=== PATIENT | female | born 1985 | race Caucasian/White ===

== ENCOUNTER → 2017-12-14 12:40 | Outpatient (CLI) | payer OTHER, SELFPAY ==
[2017-12-14 13:44] LABS: Absolute Lymphocyte Count 1.89 X10^3/ul (0.83-4.51); Absolute Neutrophil Count 6.7 X10^3/uL (2.0-7.7); Basophil# 0.01 X10^3/uL; Basophil% 0.1 % (0-1); Eosinophil# 0.02 X10^3/uL; Eosinophils% 0.2 % (0-5); Hematocrit 42.4 % (37-47); Hemoglobin 13.8 g/dl (12.0-15.0); Lymphocyte # 1.89 X10^3/ul (4.0); Lymphocyte % 20.2 % (19-41); Mean Corp Hgb Conc 32.5 g/gl (32-36); Mean Corpuscular Hgb 28.5 pg (27.0-32.0); Mean Corpuscular Volume 87.6 fL (81-99); Mean Platelet Vol. 10.6 fl (6.2-12.0); Monocyte% 7.5 % (0-10); Neutrophil # 6.74 X10^3/uL (2.7-7.7); Platelet Count 186 K/mm3 (150-450); RBC Distribution Width CV 13.5 % (11.6-14.6); RBC Distribution Width SD 43.2 fl (35.1-43.9); Red Blood Count 4.84 M/mm3 (4.2-5.4); White Blood Count 9.4 K/mm3 (4.4-11.0)
[2017-12-14 13:46] LABS: POSITIVE COUNT NO; POSITIVE DIFFERENTIAL NO; POSITIVE MORPHOLOGY NO
[2017-12-14 14:57] LABS: HIV - WCH Non-Reactive (Nonreactive)
[2017-12-14 23:14] LABS: Chlamydia Trachomatis by PCR Negative (Negative); Neisserai gonorrhoeae by PCR Negative (Negative); Probe Check PASS; Sample Adequacy Control PASS; Specimen Processing Control PASS
[2017-12-15 11:06] LABS: HEPATITIS B SURFACE AG Negative (Negative)
[2017-12-16 05:19] LABS: Rapid Plasmin Reagin (RPR) NONREACTIVE (NONREACTIVE)
[2017-12-23 12:21] LABS: HPV APTIMA, High Risk Negative (Negative)
== END ==
PROVIDERS: Family Provider Family Medicine; PCP Family Medicine; Visit Provider Obstetrics & Gynecology
DX: Z34.90 Encounter for supervision of normal pregnancy, unspecified, unspecified trimester (principal); Z12.4 Encounter for screening for malignant neoplasm of cervix
CPT/HCPCS: 36415; 85025; 86592; 86703; 86762; 86850; 86900; 87086; 87340; 87491; 87591; 88175; G0145

== ENCOUNTER → 2017-12-26 15:45 | Outpatient (CLI) | payer OTHER, SELFPAY ==
[2018-04-21 17:47] LABS: Glucose Challenge Gest 1H 50g 149 mg/dL (70-140)
== END ==
PROVIDERS: Family Provider Family Medicine; PCP Family Medicine; Visit Provider Obstetrics & Gynecology
DX: Z31.5 Encounter for procreative genetic counseling (principal); O09.511 Supervision of elderly primigravida, first trimester; Z3A.00 Weeks of gestation of pregnancy not specified
CPT/HCPCS: 36415; 82950

== ENCOUNTER → 2018-02-27 08:25 | Outpatient (CLI) | payer OTHER, SELFPAY ==
--- NOTE | 2018-02-27 08:28 | US_ITS ---
STUDY: SECOND AND THIRD TRIMESTER OBSTETRICAL ULTRASOUND REASON FOR EXAM: Female, 33 years old. Routine survey. LMP: October 09, 2017. TECHNIQUE: Transabdominal PRIOR ULTRASOUND: None. FINDINGS: There is a single intrauterine fetus. The fetus is in a breech presentation. There is demonstrated cardiac activity with a heart rate of 155 bpm. There is a normal amniotic fluid volume. The largest amniotic fluid pocket measures 2.3 cm x 7.9 cm. The amniotic fluid index (BELLO) is normal. The placenta is posterior in location and is not low lying. There are Grade 0 placental changes. The cervix measures 4.0 cm in length. The bilateral adnexal regions are normal. BIOMETRY: BPD: 4.13 cm: 18 weeks, 4 days HC: 16.96 cm: 19 weeks, 5 days AC: 14.03 cm: 19 weeks, 3 days FL: 3.14 cm: 19 weeks, 6 days CI: 68% FL/BPD: 76% FL/HC: FL/AC: 22% HC/AC: 1.21 age by current US: 19 weeks, 3 days. HYACINTH by current US: July 21, 2018. Estimated weight: 28 grams, +/- 44 grams, 17 %. Age by LMP: 20 weeks, 1 days. HYACINTH by LMP: July 16, 2018. ANATOMY: Gender: Male Cranium: Normal lateral ventricles. Normal choroid plexus. Normal cerebellum. Normal cisterna magna. Normal face, nose and lips. Chest: Normal 4-chamber heart. Abdomen/Pelvis: Normal diaphragm. Normal stomach. Normal abdominal wall. Normal cord insertion. Normal 3 vessel cord. Normal kidneys. Normal bladder. Spine: Normal cervical spine. Normal thoracic spine. Normal lumbar spine. Normal sacrum. Extremities: Normal bilateral upper extremities. Normal bilateral lower extremities. US/OB Anatomy Scan IMPRESSION: Single live intrauterine gestation with a mean gestational age of 19 weeks and 3 days. Electronically Signed: Beto Miller MD at 15:46 EDT Tel [phone], Service support ,
== END ==
PROVIDERS: Family Provider Family Medicine; PCP Family Medicine; Visit Provider Obstetrics & Gynecology
DX: Z36.89 Encounter for other specified antenatal screening (principal)
CPT/HCPCS: 76805

== ENCOUNTER → 2018-04-21 17:12 | Outpatient (CLI) | payer OTHER, SELFPAY | PROVIDERS: Family Provider Family Medicine; PCP Family Medicine; Referring Provider Obstetrics & Gynecology; Visit Provider Obstetrics & Gynecology | DX: Z00.00 Encounter for general adult medical examination without abnormal findings (principal) ==

== ENCOUNTER → 2018-04-28 06:52 | Outpatient (CLI) | payer OTHER, SELFPAY ==
[2018-04-28 07:50] LABS: Glucose GTT-Gestation. Fasting 88 mg/dL (<105)
[2018-04-28 08:58] LABS: Glucose GTT-Gestational 1 Hr 152 mg/dL (<190)
[2018-04-28 10:05] LABS: Glucose GTT-Gestational 2 Hr 92 mg/dL (<165)
[2018-04-28 11:33] LABS: Glucose GTT-Gestational 3 Hr 39 L (<145)
== END ==
PROVIDERS: Family Provider Family Medicine; PCP Family Medicine; Referring Provider Obstetrics & Gynecology; Visit Provider Obstetrics & Gynecology
DX: R73.09 Other abnormal glucose (principal)
CPT/HCPCS: 36415; 82951; 82952

== ENCOUNTER → 2018-06-23 17:52 | Outpatient (CLI) | payer OTHER, SELFPAY ==
[2018-06-23 16:41] VITALS: BMI 25.8
== END ==
PROVIDERS: Family Provider Family Medicine; PCP Family Medicine; Referring Provider Obstetrics & Gynecology; Visit Provider Obstetrics & Gynecology
DX: Z36.85 Encounter for antenatal screening for Streptococcus B (principal)
CPT/HCPCS: 87081

== ENCOUNTER 2018-07-17 16:25 | Outpatient (CLI) | payer OTHER, SELFPAY ==
[2018-07-11 16:27] VITALS: BMI 27.6
[2018-07-17 17:12] VITALS: BMI 28.1
--- NOTE | 2018-07-19 00:43 | OB.TRI.NOTE ---
- Problem List (1) False labor Status: Acute (2) history of spinal fusion Status: Acute Comment: She will consult with anesthesia concerning epidural (3) Elevated glucose tolerance test Status: Acute Comment: nl 3 hr gtt (4) Status: Acute Qualifiers: Comment: NIPT WNL, carrier and ntd screening declined. anatomy scan reviewed. (5) Supervision of normal Status: Acute Qualifiers: Comment: PRR HYACINTH 07/16/18 gender surprise Arnaldo (6) Rh negative state in antepartum period Status: Acute Comment: s/p rhogam at 28 weeks History of Present Illness Date of Service: 07/17/18 Reason For Visit: R/O LABOR History of Present Illness: co upper abodminal discomfort Allergies codeine Allergy (Mild, Verified 07/18/18 16:23) Other - Pertinent Past Medical History Surgical History: Past Surgical History (Last Reviewed 07/18/18 @ 16:22 by Alessandra Villavicencio) History of back surgery NST - FHR Rate Baby A Baseline: 140 Variability:: Moderate Accelerations:: 15 x 15 Decelerations:: None NST Reactive:: Yes FHR Category:: Category I Uterine Activity:: iregular Impression/Plan abdominal pain false labor no cervical change dc home
== END 2018-07-17 18:55 | disposition home or self-care (01) ==
LOC: WPOUT 16:39 → WP 16:40
PROVIDERS: Family Provider Family Medicine; PCP Family Medicine; Referring Provider Obstetrics & Gynecology; Visit Provider Obstetrics & Gynecology
DX: O47.9 False labor, unspecified (principal); O99.810 Abnormal glucose complicating pregnancy; O36.0130 Maternal care for anti-D [Rh] antibodies, third trimester, not applicable or unspecified; Z3A.00 Weeks of gestation of pregnancy not specified; Z98.1 Arthrodesis status
CPT/HCPCS: 59025; 59050; 99218; G0378

== ENCOUNTER 2018-07-21 05:25 | Inpatient (IN) | payer OTHER, SELFPAY ==
[2018-05-29 16:25] VITALS: BMI 25.8
[2018-07-18 16:43] VITALS: BMI 28.1
[2018-07-21] MEDS: Lactated Ringers 1,000 ML 50 ML IV ×2 (06:35→08:30)
[2018-07-21 06:46] VITALS: BMI 28.4
[2018-07-21 07:02] LABS: Hematocrit 37.7 % (37-47); Hemoglobin 12.3 g/dl (12.0-15.0); Mean Corp Hgb Conc 32.6 g/gl (32-36); Mean Corpuscular Hgb 28.1 pg (27.0-32.0); Mean Corpuscular Volume 86.3 fL (81-99); Platelet Count 189 K/mm3 (150-450); RBC Distribution Width CV 13.7 % (11.6-14.6); Red Blood Count 4.37 M/mm3 (4.2-5.4); White Blood Count 10.6 K/mm3 (4.4-11.0)
[2018-07-21 07:12] LABS: Scan Indicated on CBC? Y/N NO
[2018-07-21] MEDS: Ondansetron 4 MG/2 ML Vial IV (07:59)
--- NOTE | 2018-07-21 20:18 | PCM.HP.OB ---
- Problem List (1) Active labor at term Status: Acute (2) history of spinal fusion Status: Acute Comment: She will consult with anesthesia concerning epidural (3) Elevated glucose tolerance test Status: Acute Comment: nl 3 hr gtt (4) Status: Acute Qualifiers: Comment: NIPT WNL, carrier and ntd screening declined. anatomy scan reviewed. (5) Supervision of normal Status: Acute Qualifiers: Comment: PRR HYACINTH 07/16/18 gender surprise Arnaldo (6) Rh negative state in antepartum period Status: Acute Comment: s/p rhogam at 28 weeks History Date of Admission: 07/21/18 Final HYACINTH: 07/16/18 Gestational age: 40 Weeks and 5 Days History of this : This is a 33 year-old, at 40 weeks gestational age presents IAL 5 cm no vb lof good fm. Surgical History: Surgical History (Last Reviewed 07/18/18 @ 16:22 by Alessandra Villavicencio) History of back surgery Z98.890 Allergies codeine Adverse Reaction (Mild, Verified 07/21/18 06:47) Nausea Home Medications: Home Medications vitamin,calcium,mmawosal-ifvq-ovzgb acid tablet 1 tab PO QDAY 12/14/17 Smoking Status: Never smoker Alcohol: None Number of Fetus(es): 1 Heart Tracin moderate variability reactive no decelerations category I tracing\ [place]: regular History Past Pregnancies: Past Pregnancies Delivery Date Name GA/Weeks Outcome Route Weight Gender Labor Length Anesthesia Delivery Location Provider FOB Labs: Mom's Labs & Results 07/21/18 07/21/18 07/21/18 06:35 06:35 06:35 WBC 10.6 RBC 4.37 Hgb 12.3 Hct 37.7 MCV 86.3 MCH 28.1 MCHC 32.6 RDW 13.7 RDW Differential 42.0 Plt Count 189 MPV 11.0 Blood Type O NEGATIVE Antibody Screen TNP NEGATIVE Course Did the patient receive Yes care? Labs Blood Type: O RH: NEGATIVE RPR/VDRL/Syphilis Nonreactive Rubella status Immune HbSAg Negative Date Done: 12/14/17 Chlamydia Negative Gonorrhea Negative HIV/AIDS Non-Reactive Group B Strep: Negative Current Obstetrical History Gestational Diabetes No Incompetent Cervix No Infertility No IUGR No Macrosomia No Hypertension/Pre-eclampsia No Placenta Previa/Abruption No PTL/PROM No Uterine anomaly No Oligohydramnios No Polyhydramnios No Multiple gestation No Past Medical History Asthma No Diabetes No Hypertension No Heart disease No Mitral valve prolapse No Neurologic/Seizure disorder/ No Migraines Kidney disease No Liver disease No Varicosities No Clotting disorders/Hx of DVT No Thyroid Dysfunction No Other medical diseases No Psychiatric disorders No Major trauma No Abnormal PAP smear No Sleep apnea No Mammogram in the last 2 years No Social History Marital Status: Alleged father Arnaldo Hx Smoking No Smoking Status Never smoker Expected Delivery Method: Spontaneous Vaginal Review of Systems Constitutional: Denies: Fever, Malaise Eyes: Denies: Blurred vision, Vision Change HEENT: Denies: Head Aches, Visual Changes Cardiovascular: Denies: Chest Pain, Palpitations Respiratory: Denies: Cough, Shortness of Breath, Wheezing Gastrointestinal: Denies: Abdominal Pain, Diarrhea, Nausea, Vomiting Genitourinary: Denies: Dysuria, Hematuria Musculoskeletal: Denies: Joint Pain, Muscle pain Skin: Denies: Lesions, Rash Neurological: Denies: Blurred vision, Focal weakness, Headaches Psychiatric: Denies: Anxiety, Depression Endocrine: Denies: Heat/ Cold Intolerance Hematologic/ Lymphatic: Denies: Easy Bruising, Easy Bleeding Physical Exam General: Alert, Cooperative, No apparent distress HEENT: Atraumatic, Normocephalic. Negative for: Thyromegaly, Lymphadenopathy Cardiovascular: Regular rate Lungs: Normal air movement Abdomen: Soft, Non Tender, Gravid Neurological: Deep Tendon Reflexes 2+/4 and Symmetrical, Neuro grossly intact. 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 Negative for: Vulvar lesions Estimated gestational size: Appropriate for gestational size Presentation: Cephalic Assessment/Plan All Active Problems (Last Reviewed 07/18/18 @ 16:22 by Alessandra Villavicencio) False labor (Acute) Active labor at term (Acute) history of spinal fusion (Acute) Elevated glucose tolerance test (Acute) (Acute) Supervision of normal (Acute) Rh negative state in antepartum period (Acute) 33 yo presents IAL Patient presents IAL, plan expectant management for , pitocin/AROM PRN if needed. Pain management: plans epidural. GBS negative. Management of any complications: none I have reviewed the [facility] and made any clinically relevant updates.
--- NOTE | 2018-07-21 20:22 | HP.PCM_ITS ---
- Problem List (1) Active labor at term Status: Acute (2) history of spinal fusion Status: Acute Comment: She will consult with anesthesia concerning epidural (3) Elevated glucose tolerance test Status: Acute Comment: nl 3 hr gtt (4) Status: Acute Qualifiers: Comment: NIPT WNL, carrier and ntd screening declined. anatomy scan reviewed. (5) Supervision of normal Status: Acute Qualifiers: Comment: PRR HYACINTH 07/16/18 gender surprise Arnaldo (6) Rh negative state in antepartum period Status: Acute Comment: s/p rhogam at 28 weeks History Date of Admission: 07/21/18 Final HYACINTH: 07/16/18 Gestational age: 40 Weeks and 5 Days History of this : This is a 33 year-old, at 40 weeks gestational age presents IAL 5 cm no vb lof good fm. Surgical History: Surgical History (Last Reviewed 07/18/18 @ 16:22 by Alessandra Villavicencio) History of back surgery Z98.890 Allergies codeine Adverse Reaction (Mild, Verified 07/21/18 06:47) Nausea Home Medications: Home Medications vitamin,calcium,zxaumwzr-blvf-ofjsq acid tablet 1 tab PO QDAY 12/14/17 Smoking Status: Never smoker Alcohol: None Number of Fetus(es): 1 Heart Tracin moderate variability reactive no decelerations category I tracing\ [place]: regular History Past Pregnancies: Past Pregnancies Delivery Date Name GA/Weeks Outcome Route Weight Gender Labor Length Anesthesia Delivery Location Provider FOB Labs: Mom's Labs & Results 07/21/18 07/21/18 07/21/18 06:35 06:35 06:35 WBC 10.6 RBC 4.37 Hgb 12.3 Hct 37.7 MCV 86.3 MCH 28.1 MCHC 32.6 RDW 13.7 RDW Differential 42.0 Plt Count 189 MPV 11.0 Blood Type O NEGATIVE Antibody Screen TNP NEGATIVE Course Did the patient receive Yes care? Labs Blood Type: O RH: NEGATIVE RPR/VDRL/Syphilis Nonreactive Rubella status Immune HbSAg Negative Date Done: 12/14/17 Chlamydia Negative Gonorrhea Negative HIV/AIDS Non-Reactive Group B Strep: Negative Current Obstetrical History Gestational Diabetes No Incompetent Cervix No Infertility No IUGR No Macrosomia No Hypertension/Pre-eclampsia No Placenta Previa/Abruption No PTL/PROM No Uterine anomaly No Oligohydramnios No Polyhydramnios No Multiple gestation No Past Medical History Asthma No Diabetes No Hypertension No Heart disease No Mitral valve prolapse No Neurologic/Seizure disorder/ No Migraines Kidney disease No Liver disease No Varicosities No Clotting disorders/Hx of DVT No Thyroid Dysfunction No Other medical diseases No Psychiatric disorders No Major trauma No Abnormal PAP smear No Sleep apnea No Mammogram in the last 2 years No Social History Marital Status: Alleged father Arnaldo Hx Smoking No Smoking Status Never smoker Expected Delivery Method: Spontaneous Vaginal Review of Systems Constitutional: Denies: Fever, Malaise Eyes: Denies: Blurred vision, Vision Change HEENT: Denies: Head Aches, Visual Changes Cardiovascular: Denies: Chest Pain, Palpitations Respiratory: Denies: Cough, Shortness of Breath, Wheezing Gastrointestinal: Denies: Abdominal Pain, Diarrhea, Nausea, Vomiting Genitourinary: Denies: Dysuria, Hematuria Musculoskeletal: Denies: Joint Pain, Muscle pain Skin: Denies: Lesions, Rash Neurological: Denies: Blurred vision, Focal weakness, Headaches Psychiatric: Denies: Anxiety, Depression Endocrine: Denies: Heat/ Cold Intolerance Hematologic/ Lymphatic: Denies: Easy Bruising, Easy Bleeding Physical Exam General: Alert, Cooperative, No apparent distress HEENT: Atraumatic, Normocephalic. Negative for: Thyromegaly, Lymphadenopathy Cardiovascular: Regular rate Lungs: Normal air movement Abdomen: Soft, Non Tender, Gravid Neurological: Deep Tendon Reflexes 2+/4 and Symmetrical, Neuro grossly intact. Negative for: Clonus FLUX TUBE ATTENDANT: Normal external genitalia. Negative for: Vulvar lesions Estimated gestational size: Appropriate for gestational size Presentation: Cephalic Assessment/Plan All Active Problems (Last Reviewed 07/18/18 @ 16:22 by Alessandra Villavicencio) False labor (Acute) Active labor at term (Acute) history of spinal fusion (Acute) Elevated glucose tolerance test (Acute) (Acute) Supervision of normal (Acute) Rh negative state in antepartum period (Acute) 33 yo presents IAL Patient presents IAL, plan expectant management for , pitocin/AROM PRN if needed. Pain management: plans epidural. GBS negative. Management of any complications: none I have reviewed the [facility] and made any clinically relevant updates.
--- NOTE | 2018-07-21 21:30 | NURSING ---
Pt. epidural catheter taken out. Blue tip intact. No bleeding noted. Gauze pad and band-aid placed over site in case of future bleeding while pt. is more mobile. Pt. tearful from tape coming off, but tolerated well.
[2018-07-21] MEDS: Acetaminophen 325 MG Tablet PO (21:54)
[2018-07-22] VITALS (7 sets, daily range): BP systolic 98–120; BP diastolic 45–79; PULSE 64–81; RESP 14–18; TEMP 36.3–37.3; O2SAT 95–98
[2018-07-22] MEDS: Ibuprofen 600 MG Tablet PO ×3 (00:49→14:24)
[2018-07-22] MEDS: Senna/Docusate Sodium 1 Tablet PO (08:28)
[2018-07-22] MEDS: Acetaminophen 500 MG Tablet 1000 MG PO (10:15)
--- NOTE | 2018-07-22 10:30 | PCM.PN.OB ---
Patient Problems: Active and Suspected Problems (Last Reviewed 07/18/18 @ 16:22 by Alessandra Villavicencio) Active labor at term (Acute) Subjective: doing well no complaints pain controlled no CP SOB N V ambulating well tolerating po lochia moderate, going well - Physical Exam General: Alert, Oriented x3 Vital Signs Temp Pulse Resp BP Pulse Ox 99 F 77 14 116/45 L 96 07/22/18 08:20 07/22/18 08:20 07/22/18 08:20 07/22/18 08:20 07/22/18 08:20 Oxygen Delivery Method Room Air Weight: 184 lb 8.43 oz Body Mass Index (BMI) 28.4 Intake and Output for Last 24 Hours 07/20/18 07/21/18 07/22/18 23:59 23:59 23:59 Output Total 1999 Balance -1999 Medical Necessity - Tobacco Use Smoking Status: Never smoker Assessment/Plan All Active Problems (Last Reviewed 07/18/18 @ 16:22 by Alessandra Villavicencio) False labor (Acute) Active labor at term (Acute) history of spinal fusion (Acute) Elevated glucose tolerance test (Acute) (Acute) Supervision of normal (Acute) Rh negative state in antepartum period (Acute) s/p PPD # 1 1. routine post delivery care 2. breast feeding- support given 3. rh negative 4. rubella immune
--- NOTE | 2018-07-22 10:33 | OP.PCM_ITS ---
- Problem List (1) Active labor at term Status: Acute (2) history of spinal fusion Status: Acute Comment: She will consult with anesthesia concerning epidural (3) Elevated glucose tolerance test Status: Acute Comment: nl 3 hr gtt (4) Status: Acute Qualifiers: Comment: NIPT WNL, carrier and ntd screening declined. anatomy scan reviewed. (5) Supervision of normal Status: Acute Qualifiers: Comment: PRR HYACINTH 07/16/18 gender surprise Arnaldo (6) Rh negative state in antepartum period Status: Acute Comment: s/p rhogam at 28 weeks Vaginal Delivery Maternal Presentation: Active Labor 40w5d IAL primigravid 5 cm Amniotic Membrane Rupture Type: Artificial Amniotic Fluid Description: Clear Final HYACINTH: 07/16/18 Gestational age: 41 Weeks and 0 Days Date of Procedure: 07/21/18 Pre-Operative Diagnosis: ial Post-Operative Diagnosis: same Surgery/ Procedure Performed: Spontaneous Vaginal Delivery Type of Anesthesia: Epidural Description of Procedure: Patient began pushing and delivered the head in the ADELA presentation. The head was delivered atraumatically. The anterior and posterior shoulders delivered without complication followed by the rest of the and the infant was placed on the maternal abdomen. Delayed cord clamping was employed for estevan roximately 60 seconds. Cord was clamped and cut and gentle traction was applied to the cord and the placenta delivered spontaneously immediately following it was noted to be intact with three-vessel cord. The perineum and vagina were inspected and [noted to have a small second degree laceration that was repaired in the usual fashion. Patient and infant tolerated delivery well. Presentation: ADELA Placental Delivery Description: Spontaneous Placenta Disposition: [facility] gender: Female Episiotomy Description: None Laceration: Perineal Extension/lac, 2nd degree Medications given after delivery: IV Pitocin Complications: None
--- NOTE | 2018-07-22 12:40 | NURSING ---
pt warm and diaphoretic. afebrile with no other symptoms. pt educated on hormonal changes she may be experiencing
--- NOTE | 2018-07-22 16:00 | NURSING ---
pt provided tucks pads and dibucaine cream and given instruction on use
[2018-07-22] MEDS: Dibucaine 30 GM Tube 1 APPLIC TOPICAL (16:17)
[2018-07-23 01:18] VITALS: BP 107/67; PULSE 65; RESP 16; TEMP 36.6; O2SAT 96
[2018-07-23] MEDS: Ibuprofen 600 MG Tablet PO (07:51)
[2018-07-23] MEDS: Senna/Docusate Sodium 1 Tablet PO (10:36)
[2018-07-23] MEDS: Acetaminophen 500 MG Tablet 1000 MG PO (10:36)
--- NOTE | 2018-07-23 13:13 | PCM.DCVAG ---
Discharge Diet: No Restrictions Discharge Activity: Return to Normal Activity, May not drive while taking narcotic pain medications., May Shower May resume sexual activity in: 4-6 weeks Call your doctor if your incision/area has: Continuous Slow Oozing, Sudden Increased Bleeding, Increased Pain/ Swelling, Increased Redness, Foul Smelling Discharge Additional Instructions: If you experience any of the following, contact your healthcare provider. Bleeding that soaks a pad every hour for 2 hours Fever 100.4 or higher Unrelieved incision or abdominal pain Swelling, redness, discharge or bleeding from your incision or episiotomy site Your incision begins to separate Problems urinating (including inability to urinate or burning while urinating). Visual changes Severe headache Flu-like symptoms Pain or redness in one of both of your breasts Pain, warmth, tenderness or swelling in your legs, especially the calf area Frequent nausea and vomiting Symptoms of depression or anxiety If you experience any of the following, call 911 or go to the nearest Emergency Room. Chest pain Problems breathing Seizure activity Partial or complete paralysis of a body part, slurred speech, weakness or drooping of the face, or a sudden inability to walk or hold your balance Allergies/Adverse Reactions: Allergies codeine Adverse Reaction (Mild, Verified 07/21/18 06:47) Nausea Medications to take at Discharge vitamin,calcium,hmxigglw-gexj-ctktc acid tablet 1 tab PO QDAY 12/14/17 Please Follow Up With: Neema Gordon MD - [phone] When: Call to make an appointment with your doctor in 6 weeks. If you had elevated Blood pressure or 4th degree laceration you will need to be seen in 2 weeks. Primary Care Physician: Kendrick Jacob III, MD [Primary Care Provider] - Test Results: Test results from this visit will be discussed in further detail at your follow-up appointment, if applicable.
--- NOTE | 2018-07-23 13:14 | DCINST_ITS ---
Discharge Diet: No Restrictions Discharge Activity: Return to Normal Activity, May not drive while taking narcotic pain medications., May Shower May resume sexual activity in: 4-6 weeks Call your doctor if your incision/area has: Continuous Slow Oozing, Sudden Increased Bleeding, Increased Pain/ Swelling, Increased Redness, Foul Smelling Discharge Additional Instructions: If you experience any of the following, contact your healthcare provider. * Bleeding that soaks a pad every hour for 2 hours * Fever 100.4 or higher * Unrelieved incision or abdominal pain * Swelling, redness, discharge or bleeding from your incision or episiotomy site * Your incision begins to separate * Problems urinating (including inability to urinate or burning while urinating). * Visual changes * Severe headache * Flu-like symptoms * Pain or redness in one of both of your breasts * Pain, warmth, tenderness or swelling in your legs, especially the calf area * Frequent nausea and vomiting * Symptoms of depression or anxiety If you experience any of the following, call 911 or go to the nearest Emergency Room. * Chest pain * Problems breathing * Seizure activity * Partial or complete paralysis of a body part, slurred speech, weakness or drooping of the face, or a sudden inability to walk or hold your balance Allergies/Adverse Reactions: Allergies codeine Adverse Reaction (Mild, Verified 07/21/18 06:47) Nausea Medications to take at Discharge vitamin,calcium,ythmedqx-xlpv-myrls acid tablet 1 tab PO QDAY 12/14/17 Please Follow Up With: Neema Gordon MD - [phone] When: Call to make an appointment with your doctor in 6 weeks. If you had elevated Blood pressure or 4th degree laceration you will need to be seen in 2 weeks. Primary Care Physician: Kendrick Jacob III, MD [Primary Care Provider] - Test Results: Test results from this visit will be discussed in further detail at your follow- up appointment, if applicable.
[2018-07-23 14:00] VITALS: BP 108/69; PULSE 64; RESP 14; TEMP 36.9; O2SAT 98
== END 2018-07-23 15:45 | disposition home or self-care (01) | DRG 806 ==
PROVIDERS: Admitting Provider Obstetrics & Gynecology; Family Provider Family Medicine; PCP Family Medicine; Referring Provider Obstetrics & Gynecology; Visit Provider Obstetrics & Gynecology
DX: O70.1 Second degree perineal laceration during delivery (principal); O36.0130 Maternal care for anti-D [Rh] antibodies, third trimester, not applicable or unspecified; Z37.0 Single live birth; O99.810 Abnormal glucose complicating pregnancy; Z98.1 Arthrodesis status; Z3A.40 40 weeks gestation of pregnancy
CPT/HCPCS: 59025; 59050; 85027; 86850; 86900; 99218; J7120; G0378; J2405

== ENCOUNTER → 2021-05-21 09:59 | Outpatient (CLI) | payer OTHER, SELFPAY ==
[2021-05-21 10:31] LABS: Absolute Lymphocyte Count 1.62 X10^3/uL (0.83-4.51); Absolute Neutrophil Count 4.8 X10^3/uL (2.0-7.7); Basophil# 0.04 X10^3/uL; Basophil% 0.6 % (0-1); Eosinophil# 0.04 X10^3/uL; Eosinophils% 0.6 % (0-5); Hematocrit 40.1 % (37-47); Hemoglobin 12.9 g/dL (12.0-15.0); Lymphocyte # 1.62 X10^3/ul (0.83-4.51); Lymphocyte % 22.9 % (19-41); Mean Corp Hgb Conc 32.2 g/dL (32-36); Mean Corpuscular Hgb 27.9 pg (27.0-32.0); Mean Corpuscular Volume 86.8 fL (81-99); Monocyte# 0.56 X10^3/uL; Monocyte% 7.9 % (0-10); NRBC Flagged by Analyzer 0 % (0-5); Neutrophil # 4.77 X10^3/uL (2.7-7.7); Neutrophil % 67.6 % (47-70); Platelet Count 213 K/mm3 (150-450); RBC Distribution Width SD 40.9 fl (35.1-43.9); Red Blood Count 4.62 M/mm3 (4.2-5.4); White Blood Count 7.1 K/mm3 (4.4-11.0)
[2021-05-21 10:47] LABS: Amphetamine Urine VISTA NEGATIVE (<1000 ng/mL); Barbiturate Urine VISTA NEGATIVE (< 200 ng/mL); Benzodiazepine Urine VISTA NEGATIVE (< 200 ng/mL); Cocaine Urine VISTA NEGATIVE (< 300 ng/mL); Ecstacy Urine VISTA NEGATIVE (< 500 ng/mL); Methadone Urine VISTA NEGATIVE (< 300 ng/mL); PCP Urine VISTA NEGATIVE (< 25 ng/mL); THC Urine VISTA NEGATIVE (< 50 ng/mL); Vista UDS pH Range 6
[2021-05-21 11:09] LABS: NATERA MAILED SPECIMEN
[2021-05-21 11:43] LABS: HIV - WCH Non-Reactive (Nonreactive); Hepatitis B Surface Antigen Non-Reactive (Nonreactive); Hepatitis C Antibody Non-Reactive (Nonreactive); Rubella IgG Reactive (Nonreactive); Syphilis Antibodies Non-reactive
[2021-05-21 13:33] LABS: Amphetamine Urine VISTA NEGATIVE (<1000 ng/mL); Barbiturate Urine VISTA NEGATIVE (< 200 ng/mL); Benzodiazepine Urine VISTA NEGATIVE (< 200 ng/mL); Cocaine Urine VISTA NEGATIVE (< 300 ng/mL); Ecstacy Urine VISTA NEGATIVE (< 500 ng/mL); Methadone Urine VISTA NEGATIVE (< 300 ng/mL); PCP Urine VISTA NEGATIVE (< 25 ng/mL); THC Urine VISTA NEGATIVE (< 50 ng/mL); Vista UDS pH Range 5
[2021-05-22 21:07] LABS: Chlamydia By Nucleic Acid AMP Negative (Negative)
[2021-05-22 21:46] LABS: Gonococcus By Nucleic Acid AMP Negative (Negative)
== END ==
PROVIDERS: PCP Family Medicine; Referring Provider Obstetrics & Gynecology; Visit Provider Obstetrics & Gynecology
DX: Z34.90 Encounter for supervision of normal pregnancy, unspecified, unspecified trimester (principal)
CPT/HCPCS: 36415; 80307; 85025; 86703; 86762; 86780; 86803; 86850; 86900; 86901; 87086; 87340; 87491; 87591

== ENCOUNTER 2021-07-16 16:31 | Outpatient (CLI) | payer OTHER, SELFPAY | END 2021-07-16 23:59 | disposition short-term general hospital (02) | PROVIDERS: Referring Provider Obstetrics & Gynecology; Visit Provider Obstetrics & Gynecology | DX: Z36.9 Encounter for antenatal screening, unspecified (principal) | CPT/HCPCS: 36415 ==

== ENCOUNTER 2021-08-03 13:48 | Outpatient (CLI) | payer OTHER, SELFPAY ==
--- NOTE | 2021-08-03 14:07 | US_ITS ---
STUDY: SECOND AND THIRD TRIMESTER OBSTETRICAL ULTRASOUND - LIMITED REASON FOR EXAM: Female, 36 years old. anatomy PRIOR ULTRASOUND: None. TECHNIQUE: Transabdominal TECHNICAL QUALITY: Adequate. FINDINGS: There is a single intrauterine fetus. The fetus is in a breech presentation. There is demonstrated cardiac activity with a heart rate of 141 bpm. There is a normal amniotic fluid volume. The largest amniotic fluid pocket measures 5.4 cm. The placenta is fundal in location. There are Grade 0 placental changes. The cervix measures cm in length: 4.7. BIOMETRY: BPD: 45 mm: 19 weeks, 3 days HC: 172 mm: 19 weeks, 5 days AC: 157 mm: 20 weeks, 6 days FL: 31 mm: 19 weeks, 3 days CI: 74 FL/AC: 19 FL/BPD: 68 HC/AC: 1.10 age by current US: 19 weeks, 5 days. HYACINTH by current US: 7.6.22. Estimated weight: 338 grams, +/- 51 grams, 39 %. Age by LMP: 20 weeks, 2 days. HYACINTH by LMP: 7.2.22. ANATOMY: Gender: Male Cranium: Normal lateral ventricles. Normal choroid plexus. Normal cerebellum. Normal cisterna magna. Normal face, nose and lips. Chest: Normal 4-chamber heart. Abdomen/Pelvis: Normal diaphragm. Normal stomach. Normal abdominal wall. Normal cord insertion. There are findings suggesting a 2 vessel cord. Fullness of the kidneys can suggest possible mild hydronephrosis. Normal bladder. Spine: Normal cervical spine. Normal thoracic spine. The lumbar spine is non-visualized. non-visualized sacrum. Extremities: Normal bilateral upper extremities. Normal bilateral lower extremities. IMPRESSION: There is a single live intrauterine with a heart rate of 141 bpm. age by current US: 19 weeks, 5 days. HYACINTH by current US: 7.6.22. Estimated weight: 338 grams, +/- 51 grams, 39 %. anatomy: There are findings suggesting a 2 vessel cord. Lumbar spine and sacrum not seen. Fullness of the kidneys can suggest possible mild hydronephrosis. Level 2 US can evaluate if of concern. Electronically Signed: Leonardo Bell MD at 15:58 EST , STUDY: SECOND AND THIRD TRIMESTER OBSTETRICAL ULTRASOUND - LIMITED REASON FOR EXAM: Female, 36 years old. anatomy PRIOR ULTRASOUND: None. TECHNIQUE: Transvaginal TECHNICAL QUALITY: Adequate. FINDINGS: There is a single intrauterine fetus. The fetus is in a breech presentation. There is demonstrated cardiac activity with a heart rate of 141 bpm. There is a normal amniotic fluid volume. The largest amniotic fluid pocket measures 5.4 cm. The placenta is fundal in location. There are Grade 0 placental changes. The cervix measures cm in length: 4.7. BIOMETRY: BPD: 45 mm: 19 weeks, 3 days HC: 172 mm: 19 weeks, 5 days AC: 157 mm: 20 weeks, 6 days FL: 31 mm: 19 weeks, 3 days CI: 74 FL/AC: 19 FL/BPD: 68 HC/AC: 1.10 age by current US: 19 weeks, 5 days. HYACINTH by current US: 7.6.22. Estimated weight: 338 grams, +/- 51 grams, 39 %. Age by LMP: 20 weeks, 2 days. HYACINTH by LMP: 7.2.22. ANATOMY: Gender: Male Cranium: Normal lateral ventricles. Normal choroid plexus. Normal cerebellum. Normal cisterna magna. Normal face, nose and lips. Chest: Normal 4-chamber heart. Abdomen/Pelvis: Normal diaphragm. Normal stomach. Normal abdominal wall. Normal cord insertion. There are findings suggesting a 2 vessel cord. Fullness of the kidneys can suggest possible mild hydronephrosis. Normal bladder. Spine: Normal cervical spine. Normal thoracic spine. The lumbar spine is non-visualized. non-visualized sacrum. Extremities: Normal bilateral upper extremities. Normal bilateral lower extremities. US/OB Anatomy Scan
== END 2021-08-03 23:59 | disposition home or self-care (01) ==
PROVIDERS: Referring Provider Obstetrics & Gynecology; Visit Provider Obstetrics & Gynecology
DX: Z34.82 Encounter for supervision of other normal pregnancy, second trimester (principal)
CPT/HCPCS: 76805; 76817

== ENCOUNTER 2021-09-25 12:29 | Outpatient (CLI) | payer OTHER, SELFPAY ==
[2021-09-25 13:22] LABS: Absolute Lymphocyte Count 1.72 X10^3/uL (0.83-4.51); Absolute Neutrophil Count 6.8 X10^3/uL (2.0-7.7); Basophil# 0.02 X10^3/uL; Basophil% 0.2 % (0-1); Eosinophil# 0.03 X10^3/uL; Eosinophils% 0.3 % (0-5); Hematocrit 35.4 % (37-47); Hemoglobin 11.5 g/dL (12.0-15.0); Lymphocyte # 1.72 X10^3/ul (0.83-4.51); Lymphocyte % 18.7 % (19-41); Mean Corp Hgb Conc 32.5 g/dL (32-36); Mean Corpuscular Volume 89.2 fL (81-99); Mean Platelet Vol. 10.1 fl (6.2-12.0); Monocyte# 0.49 X10^3/uL; Monocyte% 5.3 % (0-10); NRBC Flagged by Analyzer 0 % (0-5); Neutrophil # 6.82 X10^3/uL (2.7-7.7); Neutrophil % 74.2 % (47-70); Platelet Count 189 K/mm3 (150-450); RBC Distribution Width CV 12.8 % (11.6-14.6); RBC Distribution Width SD 41.5 fl (35.1-43.9); Red Blood Count 3.97 M/mm3 (4.2-5.4); White Blood Count 9.2 K/mm3 (4.4-11.0)
[2021-09-25 13:59] LABS: Glucose Challenge Gest 1H 50g 179 mg/dL (70-140)
== END 2021-09-25 23:59 | disposition home or self-care (01) ==
LOC: LAB 12:29
PROVIDERS: Referring Provider Obstetrics & Gynecology; Visit Provider Obstetrics & Gynecology
DX: Z34.92 Encounter for supervision of normal pregnancy, unspecified, second trimester (principal)
CPT/HCPCS: 36415; 82950; 85025; 86850; 86900; 86901

== ENCOUNTER 2021-09-26 13:37 | Outpatient (CLI) | payer OTHER, SELFPAY ==
--- NOTE | 2021-10-08 08:08 | OB.TRI.HP_ITS ---
HPI - General HPI Narrative ONEL GRIFFIN, is a 36 F who presents to L&D for a rhogam only injection. She was sent to L&D by myself due to supply issue in our office today. She has no complaints or concerns and was seen by me in the office today. Maternal Data Information HYACINTH Calculator Estimated Delivery Date Method Current WG Current Estimate 12/19/21 Ultrasound #1 29w 5d Other Estimates 12/10/21 LMP (Certain) 31w 0d PFSH PFSH Medical History Lab test positive for detection of COVID-19 virus Perineal pain Home Medications prenat.vits,joni,fdy-haal-tzhhi 1 tab PO QDAY 12/14/17 [History Last Taken 07/20/18 17:00 1 tab] promethazine 25 mg tablet 25 mg PO TID PRN #30 tab 08/28/21 [Rx Last Taken Unknown] Allergy/AdvReac Type Severity Reaction Status Date / Time codeine AdvReac Mild Nausea Verified 09/26/21 13:40 Family History Father Diabetes Heart disease Mother Heart disease Arthritis Surgical History History of back surgery Social History current occupational status: employed current occupation: [employer] Smoking Status: Never smoker alcohol intake: never substance use type: does not use caffeine: No what type of physical activity do you participate in: none, walking and running frequency: 3-4 times per week seatbelt use: always do you feel safe at home: Yes additional social history: Arnaldo- Teacher History 2 Elective abortions Hx Para 1 Spontaneous abortions Hx # Term Pregnancies Ectopic pregnancies Hx # Pregnancies Multiple births # of living children 1 Past Pregnancies Del. Date Name GA/Weeks Outcome Route Bth Weight Gen Labor Lgth Anesthesia Del Locatn Provider FOB 07/21/18 Roth 40 live - full term 8lbs 11oz Male e pidural [facility] Visit Details Expected Delivery Route/Plan Labor Preferences- CB/BF classes: [] labor support person: [] labor intervention preferences: [] pain management options preferred: [] cut cord/dad catch: [] : [] PP control planned: [] discussed possible routes of delivery and associated risks: [] special requests: [] Plans Covid status: pfizer, positive at 6 weeks Flu vaccine: discussed Tdap vaccine: [] Rhogam: [] LARC form signed: [] Problem list reviewed and updated with the most current plan of care details and appropriate orders placed. Relevant counseling for the gestational age provided. Continue routine care and follow up unless otherwise noted in visit notes/problem list details OB Flowsheet Initial Weight: 145 lb Date -?-?-?-?-?--?-?-?-?-?-?-?- EGA Weight BP Urine Prot -?-?-?-?-?-?-?-?-?-?-?-?- Glucose FHR FuHt Pres Dilation -?-?-?-?-?-?-?-?-?-?-?-?- Effaced St Visit Note 05/21/21 -?-?-?-?-?-?-?-?-?-?-?-?- 9w 5d 145 lb (+0 oz) 96/60 -?-?-?-?-?-?-?-?-?-?-?-?- 180 -?-?-?-?-?-?-?-?-?-?-?-?- SM- CRL NOT cons with LMP 06/03/21 -?-?-?-?-?-?-?-?-?-?-?-?- 11w 4d 146 lb (+16 oz) 122/80 Negative -?-?-?-?-?-?-?-?-?-?-?-?- Negative 175 -?-?-?-?-?-?-?-?-?-?-?-?- JV- renzo is small er. pt reassured. RTO in 2 weeks for resolution. 06/15/21 -?-?-?-?-?-?-?-?-?-?-?-?- 13w 2d 149 lb (+4 lb) 112/72 Negative -?-?-?-?-?-?-?-?-?-?-?-?- Negative 170 -?-?-?-?-?-?-?-?-?-?-?-?- SM- 4 mm renzo res olved no vb cramping 07/16/21 -?-?-?-?-?-?-?-?-?-?-?-?- 17w 5d 154 lb (+9 lb) 92/64 -?-?-?-?-?-?-?-?-?-?-?-?- 160 -?-?-?-?-?-?-?-?-?-?-?-?- SM- no vb crampi ng 08/10/21 -?-?-?-?-?-?-?-?-?-?-?-?- 21w 2d 160 lb (+15 lb) 120/80 Negative -?-?-?-?-?-?-?-?-?-?-?-?- Negative 145 -?-?-?-?-?-?-?-?-?-?-?-?- SM- no vb lof go od fm no ctx 09/07/21 -?-?-?-?-?-?-?-?-?-?-?-?- 25w 2d 164 lb (+19 lb) 92/60 Negative -?-?-?-?-?-?-?-?-?-?-?-?- Negative 145 -?-?-?-?-?-?-?-?-?-?-?-?- SM- no vb lof go od fm no regular ctx. 09/25/21 -?-?-?-?-?-?-?-?-?-?-?-?- 27w 6d 167 lb (+22 lb) 98/60 Negative -?-?-?-?-?-?-?-?-?-?-?-?- Negative 140 28 -?-?-?-?-?-?-?-?-?-?-?-?- SM- gct today tuesday for rhogam 09/26/21 -?-?-?-?-?-?-?-?-?--?-?-?- 28w 0d -?-?-?-?-?-?-?-?-?-?-?-?- -?-?-?-?-?-?-?-?-?-?-?-?- Assessment & Plan (1) Rh negative status during : COMMENT: rhogam 05/21 PLAN: rhogam given in right hip. no complaints. return to office in 2 weeks
--- NOTE | 2021-10-08 08:08 | OB.TRI.NOTE ---
HPI - General HPI Narrative ONEL GRIFFIN, is a 36 F who presents to L&D for a rhogam only injection. She was sent to L&D by myself due to supply issue in our office today. She has no complaints or concerns and was seen by me in the office today. Maternal Data Information HYACINTH Calculator Estimated Delivery Date Method Current WG Current Estimate 12/19/21 Ultrasound #1 29w 5d Other Estimates 12/10/21 LMP (Certain) 31w 0d PFSH PFSH Medical History Lab test positive for detection of COVID-19 virus Perineal pain Home Medications prenat.vits,joni,nzv-wwbb-lxslb 1 tab PO QDAY 12/14/17 [History Last Taken 07/20/18 17:00 1 tab] promethazine 25 mg tablet 25 mg PO TID PRN #30 tab 08/28/21 [Rx Last Taken Unknown] Allergy/AdvReac Type Severity Reaction Status Date / Time codeine AdvReac Mild Nausea Verified 09/26/21 13:40 Family History Father Diabetes Heart disease Mother Heart disease Arthritis Surgical History History of back surgery Social History current occupational status: employed current occupation: [employer] Smoking Status: Never smoker alcohol intake: never substance use type: does not use caffeine: No what type of physical activity do you participate in: none, walking and running frequency: 3-4 times per week seatbelt use: always do you feel safe at home: Yes additional social history: Arnaldo- Teacher History 2 Elective abortions Hx Para 1 Spontaneous abortions Hx # Term Pregnancies Ectopic pregnancies Hx # Pregnancies Multiple births # of living children 1 Past Pregnancies Del. Date Name GA/Weeks Outcome Route Bth Weight Gen Labor Lgth Anesthesia Del Locatn Provider FOB 07/21/18 Roth 40 live - full term 8lbs 11oz Male epidural [facility] Visit Details Expected Delivery Route/Plan Labor Preferences- CB/BF classes: [] labor support person: [] labor intervention preferences: [] pain management options preferred: [] cut cord/dad catch: [] : [] PP control planned: [] discussed possible routes of delivery and associated risks: [] special requests: [] Plans Covid status: pfizer, positive at 6 weeks Flu vaccine: discussed Tdap vaccine: [] Rhogam: [] LARC form signed: [] Problem list reviewed and updated with the most current plan of care details and appropriate orders placed. Relevant counseling for the gestational age provided. Continue routine care and follow up unless otherwise noted in visit notes/problem list details OB Flowsheet Initial Weight: 145 lb Date <del>?</del> EGA Weight BP Urine Prot <del>?</del> Glucose FHR FuHt Pres Dilation <del>?</del> Effaced St Visit Note 05/21/21 <del>?</del> 9w 5d 145 lb (+0 oz) 96/60 <del>?</del> 180 <del>?</del> SM- CRL NOT cons with LMP 06/03/21 <del>?</del> 11w 4d 146 lb (+16 oz) 122/80 Negative <del>?</del> Negative 175 <del>?</del> JV- renzo is smaller. pt reassured. RTO in 2 weeks for resolution. 06/15/21 <del>?</del> 13w 2d 149 lb (+4 lb) 112/72 Negative <del>?</del> Negative 170 <del>?</del> SM- 4 mm renzo resolved no vb cramping 07/16/21 <del>?</del> 17w 5d 154 lb (+9 lb) 92/64 <del>?</del> 160 <del>?</del> SM- no vb cramping 08/10/21 <del>?</del> 21w 2d 160 lb (+15 lb) 120/80 Negative <del>?</del> Negative 145 <del>?</del> SM- no vb lof good fm no ctx 09/07/21 <del>?</del> 25w 2d 164 lb (+19 lb) 92/60 Negative <del>?</del> Negative 145 <del>?</del> SM- no vb lof good fm no regular ctx. 09/25/21 <del>?</del> 27w 6d 167 lb (+22 lb) 98/60 Negative <del>?</del> Negative 140 28 <del>?</del> SM- gct today fu tuesday for rhogam 09/26/21 <del>?</del> 28w 0d <del>?</del> <del>?</del> Assessment & Plan (1) Rh negative status during : COMMENT: rhogam 05/21 PLAN: rhogam given in right hip. no complaints. return to office in 2 weeks
== END 2021-09-26 23:59 | disposition home or self-care (01) ==
LOC: WPOUT 13:38 → WP 14:21
PROVIDERS: Visit Provider Obstetrics & Gynecology
DX: O26.893 Other specified pregnancy related conditions, third trimester (principal); Z67.90 Unspecified blood type, Rh positive; Z3A.28 28 weeks gestation of pregnancy
CPT/HCPCS: 90384; 96372; 99218; G0378; J2790

== ENCOUNTER → 2021-09-29 | Outpatient (CLI) | payer OTHER, SELFPAY ==
[2021-09-29 08:11] LABS: Glucose GTT-Gestation. Fasting 88 mg/dL (<105)
[2021-09-29 08:28] LABS: Glucose GTT-Gestational 1 Hr 139 mg/dL (<190)
[2021-09-29 09:51] LABS: Glucose GTT-Gestational 2 Hr 122 mg/dL (<165)
[2021-09-29 11:11] LABS: Glucose GTT-Gestational 3 Hr 101 L (<145)
== END | disposition home or self-care (01) ==
LOC: LAB 06:45
PROVIDERS: Visit Provider Obstetrics & Gynecology
DX: R69 Illness, unspecified (principal)
CPT/HCPCS: 36415; 82951; 82952

== ENCOUNTER 2021-11-11 17:30 | Outpatient (CLI) | payer OTHER, SELFPAY ==
[2021-11-11 17:50] VITALS: BP 130/79; PULSE 63; TEMP 37.3; O2SAT 99
[2021-11-11 17:55] VITALS: BMI 27.4
[2021-11-11 18:06] VITALS: BP 123/86; PULSE 65
[2021-11-11 18:21] VITALS: BP 114/74; PULSE 62
[2021-11-11 18:21] LABS: Color, Urine Yellow (Yellow); Glucose, Dipstick Normal (Normal); Ketone-Dipstick 5 mg/dl (Negative); Leukocyte Esterase-Dipstick 25 /ul (Negative); Nitrite-Dipstick Negative (Negative); Occult Blood-Urine 10 /ul (Negative); Protein-Dipstick 30 mg/dl (Negative); Specific Gravity, Urine 1.025 (1.002-1.030); Urine Clarity Clear (Clear); Urine Urobilinogen 4 mg/dl (Normal)
[2021-11-11 18:26] LABS: Urine Bilirubin Dipstick 1 mg/dL (Negative)
[2021-11-11] MEDS: Lactated Ringers 1,000 ML 999 ML IV (18:35)
[2021-11-11 18:49] LABS: Red Blood Cells-Urine 5-10 SEEN /hpf (0-5); Squamous Epithelial Cells - UA 0-5 SEEN /hpf (5-10); White Blood Cells 0-5 SEEN /hpf (0-5)
[2021-11-11 18:50] LABS: Bacteria 2+ /hpf (None Seen); Calcium Oxalate Crystals Ur 2+ /hpf (<or=2+); Mucous, Urine 1+ /hpf (<or=2+)
[2021-11-11] MEDS: Nitrofurantoin Macrocrystals 100 MG Capsule PO (19:42)
--- NOTE | 2021-11-11 20:11 | OB.TRI.HP_ITS ---
HPI - General HPI Narrative ONEL GRIFFIN, is a 36 F who presents to L&D with complaints of feeling weak and unwell overall. 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 She denies vaginal bleeding, dec fm, or loss of fluid Maternal Data Information HYACINTH Calculator Estimated Delivery Date Method Current WG Current Estimate 12/19/21 Ultrasound #1 34w 5d Other Estimates 12/10/21 LMP (Certain) 36w 0d PFS PFS Medical History Lab test positive for detection of COVID-19 virus Perineal pain Home Medications prenat.vits,joni,igl-xdoz-ecuid 1 tab PO QDAY 12/14/17 [History Last Taken 11/10/21 18:00] aspirin [Baby Aspirin] 81 mg PO DAILY 11/11/21 [History Last Taken 11/10/21 18:00] nitrofurantoin monohydrate/macrocrystals 100 mg capsule 100 mg PO BID 7 Days #14 cap 11/12/21 [Rx Last Taken Unknown] Allergy/AdvReac Type Severity Reaction Status Date / Time codeine AdvReac Mild Nausea Verified 11/11/21 18:02 Family History Father Diabetes Heart disease Mother Heart disease Arthritis Surgical History History of back surgery Social History current occupational status: employed current occupation: [employer] Smoking Status: Never smoker alcohol intake: never substance use type: does not use caffeine: No what type of physical activity do you participate in: none, walking and running frequency: 3-4 times per week seatbelt use: always do you feel safe at home: Yes additional social history: Arnaldo- Teacher History 2 Elective abortions Hx Para 1 Spontaneous abortions Hx # Term Pregnancies Ectopic pregnancies Hx # Pregnancies Multiple births # of living children 1 Past Pregnancies Del. Date Name GA/Weeks Outcome Route Bth Weight Gen Labor Lgth Anesthesia Del Locatn Provider FOB 07/21/18 Roth 40 live - full term 8lbs 11oz Male e pidural [facility] Visit Details Expected Delivery Route/Plan Labor Preferences- CB/BF classes: no labor support person: Arnaldo labor intervention preferences: [] pain management options preferred: epidural cut cord/dad catch: cord : yes PP control planned: discussed/IUD discussed possible routes of delivery and associated risks: [] special requests: [] Plans Covid status: srinivas, positive at 6 weeks Flu vaccine: discussed Tdap vaccine: given Rhogam: given LARC form signed: yes Problem list reviewed and updated with the most current plan of care details and appropriate orders placed. Relevant counseling for the gestational age provided. Continue routine care and follow up unless otherwise noted in visit notes/problem list details OB Flowsheet Initial Weight: 145 lb Date -?-?-?-?-?-?-?-?-?-?-?-?- EGA Weight BP Urine Prot -?-?-?-?-?-?-?-?-?-?-?-?- Glucose FHR FuHt Pres Dilation -?-?-?-?-?-?-?-?-?-?-?-?- Effaced St Visit Note 05/21/21 -?-?-?-?-?-?-?-?-?-?-?-?- 9w 5d 145 lb (+0 oz) 96/60 -?-?-?-?-?-?-?-?-?-?-?-?- 180 -?-?-?-?-?-?-?-?-?-?-?-?- SM- CRL NOT cons with LMP 06/03/21 -?-?-?-?-?-?-?-?-?-?-?-?- 11w 4d 146 lb (+16 oz) 122/80 Negative -?-?-?-?-?-?-?-?-?-?-?-?- Negative 175 -?-?-?-?-?-?-?-?-?-?-?-?- JV- renzo is small er. pt reassured. RTO in 2 weeks for resolution. 06/15/21 -?-?-?-?-?-?-?-?-?-?-?-?- 13w 2d 149 lb (+4 lb) 112/72 Negative -?-?-?-?-?-?-?-?-?-?-?-?- Negative 170 -?-?-?-?-?-?-?-?-?-?-?-?- SM- 4 mm renzo res olved no vb cramping 07/16/21 -?-?-?-?-?-?-?-?-?-?-?-?- 17w 5d 154 lb (+9 lb) 92/64 -?-?-?-?-?-?-?-?-?-?-?-?- 160 -?-?-?-?-?-?-?-?-?-?-?-?- SM- no vb crampi ng 08/10/21 -?-?-?-?-?-?-?-?-?-?-?-?- 21w 2d 160 lb (+15 lb) 120/80 Negative -?-?-?-?-?-?-?-?-?-?-?-?- Negative 145 -?-?-?-?-?-?-?-?-?-?-?-?- SM- no vb lof go od fm no ctx 09/07/21 -?-?-?-?-?-?-?-?-?-?-?-?- 25w 2d 164 lb (+19 lb) 92/60 Negative -?-?-?-?-?-?-?-?-?-?-?-?- Negative 145 -?-?-?-?-?-?-?-?-?-?-?-?- SM- no vb lof go od fm no regular ctx. 09/25/21 -?-?-?-?-?-?-?-?-?-?-?-?- 27w 6d 167 lb (+22 lb) 98/60 Negative -?-?-?-?-?-?-?-?-?-?-?-?- Negative 140 28 -?-?-?-?-?-?-?-?-?-?-?-?- SM- gct today tuesday for rhogam 09/26/21 -?-?-?-?-?-?-?-?-?-?-?-?- 28w 0d -?-?-?-?-?-?-?-?-?-?-?-?- -?-?-?-?-?-?-?-?-?-?-?-?- 10/09/21 -?-?-?-?-?-?-?-?-?-?-?-?- 29w 6d 170 lb 2 oz (+25 lb 2 oz) -?-?-?-?-?-?-?-?-?-?-?-?- -?-?-?-?-?-?-?-?-?-?-?-?- 10/09/21 -?-?-?-?-?-?-?-?-?-?-?-?- 29w 6d 170 lb 2 oz (+25 lb 2 oz) 106/70 Negative -?-?-?-?-?-?-?-?-?-?-?-?- Negative 140 29 -?-?-?-?-?-?-?-?-?-?-?-?- JV- no lof ,vagi nal bleeding, or dec fm. fell while out for a run last week on her left side. no other complaints. 10/23/21 -?-?-?-?-?-?-?-?-?-?-?-?- 31w 6d 173 lb (+28 lb) 122/70 -?-?-?-?-?-?-?-?-?-?-?-?- 144 -?-?-?-?-?-?-?-?-?-?-?-?- 11/04/21 -?-?-?-?-?-?-?-?-?-?-?-?- 33w 4d 174 lb 4 oz (+29 lb 4 oz) 112/72 Negative -?-?-?-?-?-?-?-?-?-?-?-?- Negative 140 33 -?-?-?-?-?-?-?-?-?-?-?-?- JV- most recent ultrasound pending. asking MFM if would allow bid NSTs instead of weekly bpp's starting at 36 weeks. currently has growth scans scheduled every month. 11/11/21 -?-?-?-?-?-?-?-?-?-?-?-?- 34w 4d 175 lb 4.28 oz (+30 lb 4.28 oz) 130/79 123/86 114/74 30 mg/dl (Negative) H -?-?-?-?-?-?-?-?-?-?-?-?- -?-?-?-?-?-?-?-?-?-?-?-?- ROS Constitutional Constitutional: Reports systems reviewed and no addt'l complaints, except as documented Gastrointestinal Gastrointestinal: Denies bloating, constipation, cramping, diarrhea, nausea or vomiting Genitourinary Genitourinary: Reports other Details: Denies vaginal odor, vaginal bleeding, or vaginal discharge ; Denies difficulty urinating or flank pain Physical Exam HEENT normocephalic Resp normal respiratory effort and normal air movement no CVA tenderness Extremity normal to inspection General Extremity: edema bilateral (trace ) NST FHR Rate Baby A Baseline: 140 Variability:: Moderate Accelerations:: 15 x 15 Decelerations:: None NST Reactive:: Yes FHR Category:: Category I Assessment & Plan (1) UTI (urinary tract infection): COMMENT: suspected UTI, culture pending 11/11/21- on macrobid until culture returns (2) Abnormal glucose affecting : COMMENT: 1 hr elevated at 179. nl 3hrgtt Encouraged healthy weight gain and diet (3) Two vessel cord: COMMENT: nl NIPT. fu with MFM due to other abnormalities present. growth US at 28, 32 and 36 weeks.2x weekly nsts after 36, pt was also given option per mfm to do just once weekly bpp's if prefers. Growth norm on 10/05 (4) Rh negative status during : QUALIFIERS: Trimester: third trimester Qualified Code(s): O26.893 - Other specified related conditions, third trimester; Z67.91 - Unspecified blood type, Rh negative COMMENT: rhogam 05/21 (5) Lab test positive for detection of COVID-19 virus: COMMENT: 81mg asa, growth US in third trimester. (6) Supervision of other normal : COMMENT: PRR HYACINTH: 12/19/21 boy PC: Gonzalez Spouse: Arnaldo (7) : QUALIFIERS: Weeks of gestation: 33 weeks Qualified Code(s): Z3A.33 - 33 weeks gestation of COMMENT: genetic- low risk, declines carrier. afp screen neg. anatomy reviewed PLAN: status post fluid hydration and start abx. pt to follow up on next week or sooner as needed. will call with culture report Charges/Coding Multi Select Codes Visit Charges Office Visit/Consults: 69108 OV L3 Est Urinary/Genital Urinary/Genital CPT Codes: 47659-85 non-stress test Interp
== END 2021-11-11 19:50 | disposition home or self-care (01) ==
LOC: WPOUT 17:37 → WP 17:38
PROVIDERS: Referring Provider Obstetrics & Gynecology; Visit Provider Obstetrics & Gynecology
DX: O99.891 Other specified diseases and conditions complicating pregnancy (principal); R53.1 Weakness; O99.810 Abnormal glucose complicating pregnancy; O26.893 Other specified pregnancy related conditions, third trimester; Z67.91 Unspecified blood type, Rh negative; Z3A.33 33 weeks gestation of pregnancy; Z79.82 Long term (current) use of aspirin; Z86.16 Personal history of COVID-19
CPT/HCPCS: 96360; 59025; 59050; 81001; 87086; 99218; J7120; G0378

== ENCOUNTER → 2021-11-24 | Outpatient (CLI) | payer OTHER, SELFPAY | END | disposition home or self-care (01) | LOC: LABSPEC 11-25 09:36 | PROVIDERS: Visit Provider Obstetrics & Gynecology | DX: Z34.80 Encounter for supervision of other normal pregnancy, unspecified trimester (principal) | CPT/HCPCS: 87081 ==

== ENCOUNTER 2021-12-11 19:52 | Inpatient (IN) | payer OTHER, SELFPAY ==
[2021-12-11] VITALS (21 sets, daily range): BP systolic 114–130; BP diastolic 60–83; PULSE 50–80; TEMP 36.1–36.8; O2SAT 97–99; BMI 28.2
[2021-12-11 19:44] LABS: ROM Internal Control Test YES-OK TO RESULT pt. (Internal QC)
[2021-12-11 19:45] LABS: ROM Patient Test POSITIVE (Negative)
[2021-12-11] MEDS: Lactated Ringers 1,000 ML 50 ML IV (20:15)
[2021-12-11 20:31] LABS: Absolute Lymphocyte Count 2.26 X10^3/uL (0.83-4.51); Absolute Neutrophil Count 7.8 X10^3/uL (2.0-7.7); Basophil# 0.03 X10^3/uL; Basophil% 0.3 % (0-1); Eosinophil# 0.03 X10^3/uL; Eosinophils% 0.3 % (0-5); Hematocrit 36.6 % (37-47); Hemoglobin 12.2 g/dL (12.0-15.0); Lymphocyte # 2.26 X10^3/ul (0.83-4.51); Lymphocyte % 20.3 % (19-41); Mean Corp Hgb Conc 33.3 g/dL (32-36); Mean Corpuscular Volume 84.1 fL (81-99); Mean Platelet Vol. 11.3 fl (6.2-12.0); Monocyte# 0.93 X10^3/uL; Monocyte% 8.4 % (0-10); NRBC Flagged by Analyzer 0 % (0-5); Neutrophil # 7.83 X10^3/uL (2.7-7.7); Neutrophil % 70.3 % (47-70); Platelet Count 200 K/mm3 (150-450); RBC Distribution Width CV 13.5 % (11.6-14.6); RBC Distribution Width SD 41.4 fl (35.1-43.9); Red Blood Count 4.35 M/mm3 (4.2-5.4); White Blood Count 11.1 K/mm3 (4.4-11.0)
[2021-12-11] MEDS: LACTATED RINGERS 500 ML 999 ML IV ×2 (20:43→23:05)
[2021-12-11] MEDS: fentaNYL-bupivacaine (epidural) 100 ML BAG EPIDURAL (22:07)
[2021-12-12] VITALS (13 sets, daily range): BP systolic 119–199; BP diastolic 62–82; PULSE 50–60; RESP 16–18; TEMP 36.1–37.1; O2SAT 97–98
[2021-12-12] MEDS: Oxytocin 30 units/NS 500 ml 30 UNITS/500 ML IV.SOLN 334 UNITS IV (00:20)
--- NOTE | 2021-12-12 00:28 | HP.PCM.OB_ITS ---
HPI - General General Date of Admission: 12/11/21 HPI Narrative ONEL GRIFFIN, is a 36 y/o @ 39 weeks who presents to L&D with Spontaneous rupture of membranes and active labor. She has a h/o 2 vessel cord . No other concerns. Her GBS is negative. She requests epidural for pain. Maternal Data Information HYACINTH Calculator Estimated Delivery Date Method Current WG Current Estimate 12/19/21 Ultrasound #1 39w 0d Other Estimates 12/10/21 LMP (Certain) 40w 2d PFSH [facility] Medical History Lab test positive for detection of COVID-19 virus Perineal pain Home Medications prenat.vits,joni,vys-oigp-jjkno ( Vitamin) 1 tab PO QDAY 12/14/17 [History Last Taken 12/10/21] aspirin 81 mg chewable tablet 81 mg PO DAILY 11/11/21 [History Last Taken 12/10/21] Allergy/AdvReac Type Severity Reaction Status Date / Time codeine AdvReac Mild Nausea Verified 12/10/21 11:46 Family History Father Diabetes Heart disease Mother Heart disease Arthritis Surgical History History of back surgery Social History current occupational status: employed current occupation: [employer] Smoking Status: Never smoker alcohol intake: never substance use type: does not use caffeine: No what type of physical activity do you participate in: none, walking and running frequency: 3-4 times per week seatbelt use: always do you feel safe at home: Yes additional social history: Arnaldo- Teacher History 2 Elective abortions Hx Para 1 Spontaneous abortions Hx # Term Pregnancies Ectopic pregnancies Hx # Pregnancies Multiple births # of living children 1 Past Pregnancies Del. Date Name GA/Weeks Outcome Route Bth Weight Gen Labor Lgth Anesthesia Del Locatn Provider FOB 07/21/18 Roth 40 live - full term 8lbs 11oz Male e pidural [facility] Visit Details Expected Delivery Route/Plan Labor Preferences- CB/BF classes: no labor support person: Arnaldo labor intervention preferences: [] pain management options preferred: epidural cut cord/dad catch: cord : yes PP control planned: discussed/IUD discussed possible routes of delivery and associated risks: [] special requests: [] Plans Covid status: pfizer, positive at 6 weeks Flu vaccine: discussed Tdap vaccine: given Rhogam: given LARC form signed: yes Problem list reviewed and updated with the most current plan of care details and appropriate orders placed. Relevant counseling for the gestational age provided. Continue routine care and follow up unless otherwise noted in visit notes/problem list details OB Flowsheet Initial Weight: 145 lb Date -?-?-?-?-?-?-?-?-?-?-?-?- EGA Weight BP Urine Prot -?-?-?-?-?-?-?-?-?-?-?-?- Glucose FHR FuHt Pres Dilation -?-?-?-?-?-?-?-?-?-?-?-?- Effaced St Visit Note 05/21/21 -?-?-?-?-?-?-?-?-?-?-?-?- 9w 5d 145 lb (+0 oz) 96/60 -?-?-?-?-?-?-?-?-?-?-?-?- 180 -?-?-?-?-?-?-?-?--?-?-?-?- SM- CRL NOT cons with LMP 06/03/21 -?-?-?-?-?-?-?-?-?-?-?-?- 11w 4d 146 lb (+16 oz) 122/80 Negative -?-?-?-?-?-?-?-?--?-?-?-?- Negative 175 -?-?-?-?-?-?-?-?-?-?-?-?- JV- renzo is small er. pt reassured. RTO in 2 weeks for resolution. 06/15/21 -?-?-?-?-?-?-?-?-?-?-?-?- 13w 2d 149 lb (+4 lb) 112/72 Negative -?-?-?-?-?-?-?-?-?-?-?-?- Negative 170 -?-?-?-?-?-?-?-?-?-?-?-?- SM- 4 mm renzo res olved no vb cramping 07/16/21 -?-?-?-?-?-?-?-?-?-?-?-?- 17w 5d 154 lb (+9 lb) 92/64 -?-?-?-?-?-?-?-?-?-?-?-?- 160 -?-?-?-?-?-?-?-?-?-?-?-?- SM- no vb crampi ng 08/10/21 -?-?-?-?-?-?-?-?-?-?-?-?- 21w 2d 160 lb (+15 lb) 120/80 Negative -?-?-?-?-?-?-?-?-?-?-?-?- Negative 145 -?-?-?-?-?-?-?-?-?-?-?-?- SM- no vb lof go od fm no ctx 09/07/21 -?-?-?-?-?-?-?-?-?-?-?-?- 25w 2d 164 lb (+19 lb) 92/60 Negative -?-?-?-?-?-?-?-?-?-?-?-?- Negative 145 -?-?-?-?-?-?-?-?-?-?-?-?- SM- no vb lof go od fm no regular ctx. 09/25/21 -?-?-?-?-?-?-?-?-?-?-?-?- 27w 6d 167 lb (+22 lb) 98/60 Negative -?-?-?-?-?-?-?-?-?-?-?-?- Negative 140 28 -?-?-?-?-?-?-?-?-?-?-?-?- SM- gct today tuesday for rhogam 09/26/21 -?-?-?-?-?-?-?-?-?-?-?-?- 28w 0d -?-?-?-?-?-?-?-?-?-?-?-?- -?-?-?-?-?-?-?-?-?-?-?-?- 10/09/21 -?-?-?-?-?-?-?-?-?-?-?-?- 29w 6d 170 lb 2 oz (+25 lb 2 oz) -?-?-?-?-?-?--?-?-?-?-?-?- -?-?-?-?-?-?-?-?-?-?-?-?- 10/09/21 -?-?-?-?-?-?-?-?-?-?-?-?- 29w 6d 170 lb 2 oz (+25 lb 2 oz) 106/70 Negative -?-?-?-?-?-?-?-?-?-?-?-?- Negative 140 29 -?-?-?-?-?-?-?-?-?-?-?-?- JV- no lof ,vagi nal bleeding, or dec fm. fell while out for a run last week on her left side. no other complaints. 10/23/21 -?-?-?-?-?-?-?-?-?-?-?-?- 31w 6d 173 lb (+28 lb) 122/70 -?-?-?-?-?-?-?-?-?-?-?-?- 144 -?-?-?-?-?-?-?-?-?-?-?-?- 11/04/21 -?-?-?-?-?-?-?-?-?-?-?-?- 33w 4d 174 lb 4 oz (+29 lb 4 oz) 112/72 Negative -?-?-?-?-?-?-?-?-?-?-?-?- Negative 140 33 -?-?-?-?-?-?-?-?-?-?-?-?- JV- most recent ultrasound pending. asking MFM if would allow bid NSTs instead of weekly bpp's starting at 36 weeks. currently has growth scans scheduled every month. 11/11/21 -?-?-?-?-?-?-?-?-?-?-?-?- 34w 4d 175 lb 4.28 oz (+30 lb 4.28 oz) 130/79 123/86 114/74 30 mg/dl (Negative) H -?-?-?-?-?-?-?-?-?-?-?-?- -?-?-?-?-?-?-?-?-?-?-?-?- 11/17/21 -?-?-?-?-?-?-?-?-?-?-?-?- 35w 3d 175 lb (+30 lb) 118/72 Negative -?-?-?-?-?-?-?-?-?-?-?-?- Negative 150 35 -?-?-?-?-?-?-?-?-?-?-?-?- JV- start NSTs f riday. feeling better after vertigo episode this weekend 11/20/21 -?-?-?-?-?-?-?-?-?-?-?-?- 35w 6d 178 lb (+33 lb) 110/70 Negative -?-?-?-?-?-?-?-?-?-?-?-?- Negative 150 -?-?-?-?-?-?-?-?-?-?-?-?- JV- nst reactive , no complaints today 11/24/21 -?-?-?-?-?-?-?-?-?-?-?-?- 36w 3d 176 lb 6 oz (+31 lb 6 oz) 110/72 Negative -?-?-?-?-?-?-?-?-?-?-?-?- Negative 140 36 Cephalic 1 -?-?-?-?-?-?-?-?-?-?-?-?- 0 -2 JV nst [place] ctive gbs collected. no complaints 11/27/21 -?-?-?-?-?-?-?-?-?-?-?-?- 36w 6d 176 lb (+31 lb) -?-?-?-?-?-?-?-?-?-?-?-?- 140 -?-?-?-?-?-?-?-?-?-?-?-?- JV- nst only tod ay (reactive after an hour) 12/01/21 -?-?-?-?-?-?-?-?-?-?-?-?- 37w 3d 179 lb 2 oz (+34 lb 2 oz) 112/70 Negative -?-?-?-?-?-?-?-?-?-?-?-?- Negative 140 -?-?-?-?-?-?-?-?-?-?-?-?- SM- no vb lof go od fm noregular ctx some irregular 12/03/21 -?-?-?-?-?-?-?-?-?-?-?-?- 37w 5d 179 lb 4 oz (+34 lb 4 oz) 116/68 Negative -?-?-?-?-?-?-?-?-?-?-?-?- Negative 140 -?-?-?-?-?-?-?-?-?-?-?-?- SM- NST only 12/07/21 -?-?-?-?-?-?-?-?-?-?-?-?- 38w 2d 178 lb (+33 lb) 102/60 102/69 -?-?-?-?-?-?-?-?-?-?-?-?- 140 1.5 -?-?-?-?-?-?-?-?-?-?-?-?- 60 -2 SM- no vb lof good fm no regular ctx 12/10/21 -?-?-?-?-?-?-?-?-?-?-?-?- 38w 5d 179 lb 4 oz (+34 lb 4 oz) 126/78 Negative -?-?-?-?-?-?-?-?-?-?-?-?- Negative 130 -?-?-?-?-?-?-?-?-?-?-?-?- MH-NST only. [place] ctive ROS Constitutional Constitutional: Denies change in weight, fatigue, fever(s), headache(s), poor appetite or weakness Eyes Eyes: Denies blurry vision, change in vision, seeing flashes or spots in vision ENT HEENT: Denies dizziness, headache(s), loss taste/smell or sore throat Cardiovascular Cardiovascular: Denies chest pain, dizziness, dyspnea, irregular heart rhythm, leg edema, palpitations, rapid heart rate or vomiting Respiratory/Chest Respiratory/Chest: Denies chest tightness, cough, dyspnea or breast pain Gastrointestinal Gastrointestinal: Denies abdominal pain, anorexia, constipation, cramping, diarrhea, hemorrhoids, vomiting or weight changes Genitourinary Genitourinary: Denies dysuria, flank pain, genital lesions, genital pain, urinary frequency or urinary urgency Musculoskeletal Musculoskeletal: Denies back pain, difficulty walking, joint pain, limited range of motion, muscle cramps or numbness Integumentary Integumentary: Denies lesions or unusual bruising Neurologic Neurologic: Denies abnormal movements, abnormal speech, dizziness, numbness, seizure-like activity or syncope Psychiatric Psychiatric: Denies anxiety, behavioral changes, change in appetite, change in libido, cognitive impairment, confusion, depression, difficulty concentrating, hallucinations or suicidal thoughts Endocrine Endocrinology: Denies excessive sweating, polydipsia or polyuria Hematologic/Lymphatic Hematologic/Lymphatic: Denies easy bleeding, easy bruising or lymphadenopathy Allergic/Immunologic Allergic/Immunologic: Denies itchy eyes, lip swelling, seasonal rhinorrhea, rhinitis, throat swelling, tongue swelling, eczemia, wheezing or asthma Vital Signs Vital Signs Vital Signs: 12/11/21 19:16 12/11/21 19:16 12/11/21 19:21 Temperature 97.2 F L Temperature Source Temporal Pulse Rate Blood Pressure 127/78 H BP Systolic 127 BP Diastolic 78 Pulse Ox 12/11/21 19:21 12/11/21 19:21 12/11/21 20:50 Temperature Temperature Source Pulse Rate 67 68 Blood Pressure BP Systolic BP Diastolic Pulse Ox 98 12/11/21 20:50 12/11/21 20:49 12/11/21 21:52 Temperature 98.3 F Temperature Source Pulse Rate Blood Pressure 119/81 H BP Systolic 119 BP Diastolic 81 Pulse Ox 98 12/11/21 21:52 12/11/21 21:54 12/11/21 21:54 Temperature Temperature Source Pulse Rate 68 64 Blood Pressure BP Systolic BP Diastolic Pulse Ox 97 12/11/21 21:58 12/11/21 21:58 12/11/21 21:59 Temperature Temperature Source Pulse Rate 64 Blood Pressure 128/83 H 128/82 H BP Systolic 128 128 BP Diastolic 83 82 Pulse Ox 12/11/21 21:59 12/11/21 21:59 12/11/21 22:04 Temperature Temperature Source Pulse Rate 72 76 Blood Pressure BP Systolic BP Diastolic Pulse Ox 98 12/11/21 22:04 12/11/21 22:06 12/11/21 22:06 Temperature Temperature Source Pulse Rate 71 Blood Pressure 120/67 BP Systolic 120 BP Diastolic 67 Pulse Ox 99 12/11/21 22:09 12/11/21 22:09 12/11/21 22:12 Temperature Temperature Source Pulse Rate 72 Blood Pressure 120/68 BP Systolic 120 BP Diastolic 68 Pulse Ox 98 12/11/21 22:12 12/11/21 22:14 12/11/21 22:14 Temperature Temperature Source Pulse Rate 68 80 Blood Pressure BP Systolic BP Diastolic Pulse Ox 98 12/11/21 22:17 12/11/21 22:17 12/11/21 22:19 Temperature Temperature Source Pulse Rate 80 70 Blood Pressure 125/67 H BP Systolic 125 BP Diastolic 67 Pulse Ox 12/11/21 22:19 12/11/21 22:23 12/11/21 22:23 Temperature Temperature Source Pulse Rate 72 Blood Pressure 130/63 H BP Systolic 130 BP Diastolic 63 Pulse Ox 98 12/11/21 22:24 12/11/21 22:24 12/11/21 22:24 Temperature Temperature Source Temporal Pulse Rate 78 Blood Pressure BP Systolic BP Diastolic Pulse Ox 99 12/11/21 22:24 12/11/21 22:27 12/11/21 22:27 Temperature 96.9 F L Temperature Source Pulse Rate 64 Blood Pressure 117/60 BP Systolic 117 BP Diastolic 60 Pulse Ox 12/11/21 23:05 12/11/21 23:05 12/11/21 23:05 Temperature Temperature Source Temporal Pulse Rate 50 L Blood Pressure BP Systolic BP Diastolic Pulse Ox 98 12/11/21 23:05 12/11/21 23:07 12/11/21 23:07 Temperature 97.6 F L Temperature Source Pulse Rate 53 L Blood Pressure 114/67 BP Systolic 114 BP Diastolic 67 Pulse Ox 12/11/21 23:50 12/11/21 23:50 12/11/21 23:50 Temperature Temperature Source Pulse Rate 62 Blood Pressure 122/77 H BP Systolic 122 BP Diastolic 77 Pulse Ox 99 Weight Weight: 180 lb 4.352 oz Body Mass Index (BMI) 28.2 Physical Exam Const alert, oriented x3, no apparent distress and healthy appearing General Appearance: cooperative; Negative for anxious HEENT normocephalic Face and Sinus: normal facial exam Eyes EOMs intact bilaterally and no scleral icterus General Eye: normal appearance of both eyes Neck full ROM and supple Lymph Lymphatic: no lymphadenopathy noted Chest Chest: abnormal inspection of the chest Resp normal respiratory effort Effort and Inspection: able to speak in complete sentences Cardio regular rate GI soft to palpation and non-tender Inspection: gravid Palpation: soft; Negative for tender external exam normal Narrative: Cx 2/80/-2 on admission Amniotic Fluid: ROM+plus Back/Spine no CVA tenderness Extremity normal to inspection, full ROM and no clubbing, cyanosis or edema General Extremity: Negative for calf tenderness or edema Skin Lesions: no lesions Rashes: no rashes Psych mental status grossly normal Labs Labs Labs: Blood Type O NEGATIVE Antibody Screen NEGATIVE Hct 36.6 % (37-47) L Hgb 12.2 g/dL (12.0-15.0) Pap Smear Negative Obstetrics US Syphilis Total Ab Non-reactive Rubella IgG Antibody Reactive (Nonreactive) Hep Bs Antigen Non-Reactive (Nonreactive) Chlamydia DNA ([place]) Negative (Negative) Neisseria gonorrhoeae DNA ([place]) Negative (Negative) HIV 1&2 Antibody Non-Reactive (Nonreactive) Glucose 1 Hr 50 gm 179 mg/dL (70-140) H Rhogam given: No Miscellaneous Test Assessment & Plan (1) UTI (urinary tract infection): COMMENT: suspected UTI, culture pending 11/11/21- on macrobid until culture returns culture returned negative. (2) Abnormal glucose affecting : COMMENT: 1 hr elevated at 179. nl 3hrgtt Encouraged healthy weight gain and diet (3) Two vessel cord: COMMENT: nl NIPT. fu with MFM due to other abnormalities present. growth US at 28, 32 and 36 weeks.2x weekly nsts after 36, pt was also given option per mfm to do just once weekly bpp's if prefers. Growth norm on 10/05, 11/30 (4) Rh negative status during : QUALIFIERS: Trimester: third trimester Qualified Code(s): O26.893 - Other specified related conditions, third trimester; Z67.91 - Unspecified blood type, Rh negative COMMENT: rhogam 05/21 (5) Lab test positive for detection of COVID-19 virus: COMMENT: 81mg asa, growth US in third trimester. (6) Supervision of other normal : COMMENT: PRR HYACINTH: 12/19/21 boy PC: Gonzalez Spouse: Arnaldo (7) : QUALIFIERS: Weeks of gestation: 38 weeks Qualified Code(s): Z3A.38 - 38 weeks gestation of COMMENT: GBS negative, genetic- low risk, declines carrier. afp screen neg. anatomy reviewed PLAN: Plan Patient presents IAL, plan expectant management for , pitocin PRN Pain management: plans epidural. GBS negative. Management of any complications: 2 vessel cord. I have reviewed the PFSH and made any clinically relevant updates.
--- NOTE | 2021-12-12 00:32 | OP.PCM_ITS ---
Assessment & Plan (1) Abnormal glucose affecting : COMMENT: 1 hr elevated at 179. nl 3hrgtt Encouraged healthy weight gain and diet (2) Two vessel cord: COMMENT: nl NIPT. fu with MFM due to other abnormalities present. growth US at 28, 32 and 36 weeks.2x weekly nsts after 36, pt was also given option per mfm to do just once weekly bpp's if prefers. Growth norm on 10/05, 11/30 (3) Rh negative status during : QUALIFIERS: Trimester: third trimester Qualified Code(s): O26.893 - Other specified related conditions, third trimester; Z67.91 - Unspecified blood type, Rh negative COMMENT: rhogam 05/21 (4) Lab test positive for detection of COVID-19 virus: COMMENT: 81mg asa, growth US in third trimester. (5) Supervision of other normal : COMMENT: PRR HYACINTH: 12/19/21 boy PC: Gonzalez Spouse: Arnaldo (6) : QUALIFIERS: Weeks of gestation: 38 weeks Qualified Code(s): Z3A.38 - 38 weeks gestation of COMMENT: GBS negative, genetic- low risk, declines carrier. afp screen neg. anatomy reviewed Maternal Data Information HYACINTH Calculator Estimated Delivery Date Method Current WG Current Estimate 12/19/21 Ultrasound #1 39w 0d Other Estimates 12/10/21 LMP (Certain) 40w 2d Final HYACINTH: 12/19/21 Final HYACINTH Source: US <20 weeks Gestational age: 39 weeks 0 days Vaginal Delivery Maternal Presentation Maternal Presentation: Active Labor and Spontaneous Rupture of Membranes Operative Information Date of Procedure: 12/12/21 Pre-Operative Diagnosis: 39 weeks 0 days, spontaneous rupture of membranes and active labor, Post-Operative Diagnosis: 39 weeks 0 days, spontaneous rupture of membranes and active labor, Type of Anesthesia: Epidural Drain: Alvarado to straight drain Estimated Blood Loss: 100cc Findings Description of Procedure: Patient began pushing and delivered the head in the ADELA presentation. The head was delivered atraumatically. The anterior and posterior shoulders delivered without complication followed by the rest of the infant and the infant was placed on the maternal abdomen. Delayed cord clamping was employed for approximately 60 seconds. Cord was clamped and cut and gentle traction was applied to the cord and the placenta delivered spontaneously immediately following it was noted to be intact with three-vessel cord. The perineum and vagina were inspected and noted to have a 1st degree laceration repaired with a 3-0 vicryl rapide suture. EBL was 100 cc. Patient and infant tolerated delivery well. Presentation: Vertex Amniotic Membrane Rupture Type: Spontaneous Amniotic Fluid Description: Clear Placental Delivery Description: Spontaneous Placenta Disposition: [facility] Cord Vessel Description: 2 Vessels Cord Entanglement: None Infant A Gender: Male (1 minute): 9 (5 minute): 9 Delayed Cord Clamping: Yes Post Vaginal Delivery Medications Given After Delivery: IV Pitocin Episiotomy Description: None Laceration: 1st degree Complication Complications: None Procedures Urinary/Genital [id number]: [id number] Vaginal Delivery [facility]
--- NOTE | 2021-12-12 00:35 | DCINST_ITS ---
Discharge Instructions Diet Discharge Diet: No restrictions Activity Discharge Activity: Return to Normal Activity, May Not Drive (while taking narcotic pain medications.) and May Shower May resume sexual activity in: 4-6 weeks Dressing / Incision Call your doctor if your incision/area has: Continuous Slow Oozing, Sudden Increased Bleeding, Increased Pain/ Swelling, Increased Redness and Foul Smelling Discharge Follow Up Care Please Follow Up With: Martha Trujillo DO When: Call [phone] to make an appointment with your doctor in 6 weeks. If you had elevated blood pressure or 4th degree laceration, you will need to be seen in 2 weeks. Test Results: Test results from this visit will be discussed in further detail at your follow- up appointment, if applicable. Discharge Plan Admission Admit Date/Time: 12/11/21 19:52 Primary Reason for Your Visit: vaginal delivery Attending Provider: Martha Trujillo Primary Care Provider: Danica Ryan Primary Discharge Orders/Prescriptions Prescriptions: New ibuprofen 600 mg tablet 600 mg PO Q6H PRN (Reason: pain) 7 Days Qty: 30 0RF Rx Instructions: one tab every 6 hrs as needed for mild to moderate pain Continued prenat.vits,joni,iib-ftjy-umwrr [ Vitamin] tablet 1 tab PO QDAY Discontinued aspirin [Baby Aspirin] 81 mg Tablet,Chewable 81 mg PO DAILY Referrals / Follow Up: Care Physician,Danica Primary [Primary Care Provider] - Disposition Disposition (needs filled in before D/C Order can be placed): Home, Self Care
[2021-12-12] MEDS: Ibuprofen 600 MG Tablet PO ×3 (02:20→18:29)
[2021-12-12] MEDS: Acetaminophen 500 MG Tablet 1000 MG PO ×3 (06:59→21:20)
--- NOTE | 2021-12-12 10:10 | PCM.PN.OB ---
Subjective Subjective Patient doing well without complaints. Tolerating PO. Ambulating and voiding without difficulty. Feeding well. Denies chest pain, shortness of breath, calf pain/swelling, fevers, chills, lightheadedness. Objective Data Objective Data Vital Signs: Vital Signs Temp Pulse Resp BP Pulse Ox 98.2 F 54 L 16 129/77 H 97 12/12/21 08:16 12/12/21 08:16 12/12/21 08:16 12/12/21 08:16 12/12/21 02:21 Oxygen Delivery Method Room Air Weight: 180 lb 4.352 oz Body Mass Index (BMI) 28.2 Intake & Output: Intake and Output for Last 24 Hours 12/10/21 12/11/21 12/12/21 23:59 23:59 23:59 Intake Total 1087.5 / 1087.5 1346.67 / 1346.67 Output Total 600 / 600 Balance 1087.5 / 1087.5 746.67 / 746.67 Lab / Micro Data Result Diagrams: 12/11/21 20:15 Labs: Laboratory Results - last 24 hr 12/11/21 19:28: Vag Amniotic Fld Detect POSITIVE H 12/11/21 20:15: WBC 11.1 H, RBC 4.35, Hgb 12.2, Hct 36.6 L, MCV 84.1, MCH 28.0, MCHC 33.3, RDW Std Deviation 41.4, RDW Coeff of [place] 13.5, Plt Count 200, MPV 11.3, Immature Gran % (Auto) 0.400, Neut % (Auto) 70.3 H, Lymph % (Auto) 20.3, [place] % (Auto) 8.4, Eos % (Auto) 0.3, Baso % (Auto) 0.3, Absolute Neuts (auto) 7.8 H, Absolute Lymphs (auto) 2.26, Nucleated RBC % 0 12/11/21 20:15: Blood Type O NEGATIVE, Antibody Screen TNP 12/11/21 20:15: Antibody Screen NEGATIVE Micro: Microbiology 12/11/21 20:00 Nasal Secretion SARS-CoV-2 Antigen (Rapid) - Final ROS Constitutional Constitutional: Denies chills, fatigue, fever(s), poor appetite or weakness Eyes Eyes: Denies blurry vision, change in vision, seeing flashes or spots in vision ENT HEENT: Denies dizziness, headache(s), loss taste/smell or sore throat Cardiovascular Cardiovascular: Denies chest pain, dizziness, dyspnea, irregular heart rhythm, palpitations or rapid heart rate Respiratory/Chest Respiratory/Chest: Denies chest tightness, cough, dyspnea or breast pain Gastrointestinal Gastrointestinal: Denies abdominal pain, constipation or vomiting Genitourinary Genitourinary: Denies dysuria or flank pain Musculoskeletal Musculoskeletal: Denies difficulty walking, joint pain, limited range of motion or numbness Neurologic Neurologic: Denies abnormal movements, abnormal speech, dizziness, numbness, seizure-like activity or syncope Psychiatric Psychiatric: Denies anxiety, behavioral changes, change in appetite, confusion, depression or suicidal thoughts Physical Exam Const alert, oriented x3 and no apparent distress General Appearance: cooperative and comfortable Resp normal respiratory effort Cardio regular rate GI normal to inspection, nondistended, normoactive bowel sounds GI Narrative: uterus is firm below umbilicus Palpation: soft Back/Spine no CVA tenderness and thoraco-lumbar ROM normal Extremity normal to inspection, no clubbing, cyanosis or edema, no calf tenderness and no pedal edema Psych mental status grossly normal, thought process normal, cooperative, affect normal, speech normal, activity/motor behavior normal, denies homicidal ideation and denies suicidal ideation Assessment & Plan (1) Status post vaginal delivery: COMMENT: baby cristina Shaw- JV on 12/12/21 PLAN: Plan s/p PPD # 0 1. routine post delivery care 2. breast feeding- support given 3. rh positive 4. rubella immune
[2021-12-12] MEDS: Senna/Docusate Sodium 1 Tablet PO (10:12)
[2021-12-13 01:55] VITALS: BP 121/83; PULSE 56; RESP 16; TEMP 36.9; O2SAT 98
[2021-12-13] MEDS: Ibuprofen 600 MG Tablet PO ×2 (04:46→10:04)
[2021-12-13 08:16] VITALS: BP 125/75; PULSE 56; RESP 15; TEMP 36.2
[2021-12-13] MEDS: Acetaminophen 500 MG Tablet 1000 MG PO (08:25)
--- NOTE | 2021-12-13 08:29 | PN.OBGYN_ITS ---
Subjective Subjective Patient doing well without complaints. Tolerating PO. Ambulating and voiding without difficulty. Feeding well. Denies chest pain, shortness of breath, calf pain/swelling, fevers, chills, lightheadedness. Objective Data Objective Data Vital Signs: Vital Signs Temp Pulse Resp BP Pulse Ox 97.2 F L 56 L 15 125/75 H 98 12/13/21 08:16 12/13/21 08:16 12/13/21 08:16 12/13/21 08:16 12/13/21 01:55 Oxygen Delivery Method Room Air Weight: 180 lb 4.352 oz Body Mass Index (BMI) 28.2 Intake & Output: Intake and Output for Last 24 Hours 12/11/21 12/12/21 12/13/21 23:59 23:59 23:59 Intake Total 1087.5 / 1087.5 1346.67 / 1346.67 Output Total 600 / 600 Balance 1087.5 / 1087.5 746.67 / 746.67 Lab / Micro Data Result Diagrams: 12/11/21 20:15 Micro: Microbiology 12/11/21 20:00 Nasal Secretion SARS-CoV-2 Antigen (Rapid) - Final ROS Constitutional Constitutional: Denies change in weight, chills, fatigue, fever(s), headache(s), poor appetite or weakness Eyes Eyes: Denies blurry vision, change in vision, seeing flashes or spots in vision ENT HEENT: Denies dizziness, headache(s), loss taste/smell or sore throat Cardiovascular Cardiovascular: Denies chest pain, dizziness, dyspnea, irregular heart rhythm, leg edema, palpitations, rapid heart rate or vomiting Respiratory/Chest Respiratory/Chest: Denies chest tightness, cough, dyspnea or breast pain Gastrointestinal Gastrointestinal: Denies abdominal pain, anorexia, constipation, cramping, diarrhea, hemorrhoids, vomiting or weight changes Genitourinary Genitourinary: Denies dysuria, flank pain, genital lesions, genital pain, urinary frequency or urinary urgency Musculoskeletal Musculoskeletal: Denies back pain, difficulty walking, joint pain, limited range of motion, muscle cramps or numbness Integumentary Integumentary: Denies lesions or unusual bruising Neurologic Neurologic: Denies abnormal movements, abnormal speech, dizziness, numbness, seizure-like activity or syncope Psychiatric Psychiatric: Denies anxiety, behavioral changes, change in appetite, change in libido, cognitive impairment, confusion, depression, difficulty concentrating, hallucinations or suicidal thoughts Endocrine Endocrinology: Denies excessive sweating, polydipsia or polyuria Hematologic/Lymphatic Hematologic/Lymphatic: Denies easy bleeding, easy bruising or lymphadenopathy Allergic/Immunologic Allergic/Immunologic: Denies itchy eyes, lip swelling, seasonal rhinorrhea, rhinitis, throat swelling, tongue swelling, eczemia, wheezing or asthma Physical Exam Const alert, oriented x3, no apparent distress and healthy appearing General Appearance: cooperative and comfortable; Negative for anxious HEENT normocephalic Eyes EOMs intact bilaterally and no scleral icterus General Eye: normal appearance of both eyes Neck full ROM and supple Lymph Lymphatic: no lymphadenopathy noted Chest Chest: abnormal inspection of the chest Resp normal respiratory effort Effort and Inspection: able to speak in complete sentences Cardio regular rate GI normal to inspection, nondistended, normoactive bowel sounds, soft to palpation and non-tender GI Narrative: uterus is firm below umbilicus Palpation: soft; Negative for tender external exam normal Narrative: Cx 2/80/-2 on admission Back/Spine no CVA tenderness and thoraco-lumbar ROM normal Extremity normal to inspection, full ROM, no clubbing, cyanosis or edema, no calf te nderness and no pedal edema General Extremity: Negative for calf tenderness or edema Skin Lesions: no lesions Rashes: no rashes Psych mental status grossly normal, thought process normal, cooperative, affect normal, speech normal, activity/motor behavior normal, denies homicidal ideation and denies suicidal ideation Assessment & Plan (1) Status post vaginal delivery: COMMENT: baby boy Colin- JV on 12/12/21 PLAN: Plan s/p PPD # 1 - Mom wants to go home today. 1. routine post delivery care 2. breast feeding- support given 3. rh positive 4. rubella immune
[2021-12-13 13:17] VITALS: BP 126/77; RESP 16; TEMP 36.3
[2021-12-13] MEDS: Senna/Docusate Sodium 1 Tablet PO (13:30)
== END 2021-12-13 13:35 | disposition home or self-care (01) | DRG 807 ==
LOC: WPOUT 19:55 → WP 19:55
PROVIDERS: Admitting Provider Obstetrics & Gynecology; Visit Provider Obstetrics & Gynecology
DX: O42.92 Full-term premature rupture of membranes, unspecified as to length of time between rupture and onset of labor (principal); Z37.0 Single live birth; O26.893 Other specified pregnancy related conditions, third trimester; O70.0 First degree perineal laceration during delivery; Z67.41 Type O blood, Rh negative; Z3A.39 39 weeks gestation of pregnancy; Z79.82 Long term (current) use of aspirin; Z86.16 Personal history of COVID-19; Z87.59 Personal history of other complications of pregnancy, childbirth and the puerperium
CPT/HCPCS: 59025; 59050; 84112; 85025; 86850; 86900; 86901; 87426; 99218; J7120; G0378

== ENCOUNTER → 2023-01-21 | Outpatient (CLI) | payer OTHER, SELFPAY ==
[2023-01-27 11:08] LABS: HPV APTIMA, High Risk Negative (Negative)
== END | disposition home or self-care (01) ==
LOC: LABSPEC 16:21
PROVIDERS: Referring Provider Obstetrics & Gynecology; Visit Provider Obstetrics & Gynecology
DX: Z12.4 Encounter for screening for malignant neoplasm of cervix (principal)
CPT/HCPCS: 87624; 88175; G0145